=== PATIENT | male | born 1955 | race Caucasian/White ===

== ENCOUNTER 2018-09-19 17:57 | Emergency (ER) | payer OTHER ==
[~2018-09-19] VITALS: Ht 175.3 cm; Wt 80.7 kg
[2018-09-19 18:16] VITALS: BP 152/85
[2018-09-19] MEDS ORDERED: DEXTROSE (50%) 50ML SYRG IV ONE ×2 (18:30→18:45)
[2018-09-19] MEDS ORDERED: ACCU-CHEK COMFORT CURVE STRIP VI ONE ×2 (18:30→18:45)
== END 2018-09-19 19:21 | disposition home or self-care (01) ==
LOC: EDBD 17:57 → ER 18:13
DX: E11.649 Type 2 diabetes mellitus with hypoglycemia without coma (principal); E78.5 Hyperlipidemia, unspecified; I10 Essential (primary) hypertension; F17.210 Nicotine dependence, cigarettes, uncomplicated
CPT/HCPCS: 93005